=== PATIENT | female | born 1970 | race Caucasian/White ===

== ENCOUNTER 2019-11-26 14:50 | Outpatient (CLI) | payer MEDICARE, MEDICAID, SELFPAY ==
--- NOTE | 2019-11-26 15:11 | XR_ITS ---
WS: [id number] Left shoulder, 2 views, 11/26/2019 Clinical Data: LEFT SHOULDER PAIN Comparison: None. Findings: No fractures or dislocations are seen. The AC joint is normal. The adjacent left clavicle, left scapu la and ribs are normal. The soft tissues are unremarkable. XR/XR shoulder LT min 2V* [id number] Impression: Negative left shoulder.
--- NOTE | 2019-11-26 15:11 | XR_ITS ---
WS: [id number] Bone mineral density performed on a [place], 11/26/2019 Clinical data: OSTEOPOROSIS Findings: The first 4 lumbar vertebral bodies demonstrated the bone mineral density of 1.237 g/cm2 for a young adult T score of 0.5. Measurement of the left hip reveals a bone mineral density of 0.933 g/cm2 with a young adult T score of -0.6. Measurement of the right hip reveals the bone mineral density of 0.935 g/cm2 for young adult T score of -0.6. XR/XR DEXA axial skeleton* [id number] Impression: Normal bone mineral density of the lumbar spine and both hips.
== END 2019-11-26 14:51 | disposition home or self-care (01) ==
LOC: RADWPI 14:57
PROVIDERS: PCP Nurse Practitioner Family; Visit Provider Nurse Practitioner Family
DX: M81.0 Age-related osteoporosis without current pathological fracture (principal); M25.512 Pain in left shoulder
CPT/HCPCS: 73030; 77080

== ENCOUNTER 2019-12-20 11:05 | Outpatient (CLI) | payer MEDICARE, MEDICAID, SELFPAY ==
--- NOTE | 2019-12-20 11:11 | MM_ITS ---
WS: [id number] BILATERAL SCREENING DIGITAL MAMMOGRAM WITH CAD HISTORY: SCREENING COMPARISON: 11/11/2018 Bilateral CC and MLO views submitted. Computer aided detection analyzed. Breast composition: The breasts are heterogeneously dense, which may obscure small masses. No suspici ous masses, microcalcifications or architectural distortion. MM/[place] [id number] IMPRESSION: BI-RADS: 1-Negative FOLLOW UP: 1 Year Follow-up
--- NOTE | 2019-12-20 11:46 | USCV_ITS ---
Jaye Monge Age: 49 Gender: F : 1970 Exam Date: 12/20/2019 12:38 Ordering Phys: Eryn Reed APRN Technologist: Gurdeep Villar Exam Location: [facility] [place] Indication: CHEST PAIN BP: 120 / 80 HR: 61 Rhythm: Sinus Technical Quality: Good MEASUREMENTS (Male / Female) Normal Values 2D ECHO LV Diastolic Diameter PLAX 4.1 cm 4.2 - 5.9 / 3.9 - 5.3 cm LV Systolic Diameter PLAX 2.4 cm IVS Diastolic Thickness 1.0 cm 0.6 - 1.0 / 0.6 - 0.9 cm IVS Systolic Thickness 1.0 cm LVPW Diastolic Thickness 0.7 cm 0.6 - 1.0 / 0.6 - 0.9 cm LVPW Systolic Thickness 0.9 cm LVOT Diameter 2.0 cm LV Ejection Fraction 2D Teich 73.8 % LV Ejection Fraction MOD 2C 62.3 % LV Ejection Fraction 2C AL 64.1 % LA Diameter 3.2 cm LA Width 3.1 cm LA Height 3.3 cm RA Width 2.8 cm RA Height 3.7 cm Aorta at Sinotubular Diameter 0.9 cm M-MODE LV Diastolic Diameter MM 4.5 cm 4.2 - 5.9 / 3.9 - 5.3 cm LV Systolic Diameter MM 3.3 cm LV Ejection Fraction MM Teich 50.5 % IVS Diastolic Thickness MM 0.9 cm 0.6 - 1.0 / 0.6 - 0.9 cm IVS Systolic Thickness MM 1.2 cm LVPW Diastolic Thickness MM 0.9 cm 0.6 - 1.0 / 0.6 - 0.9 cm LVPW Systolic Thickness MM 1.7 cm RV Diastolic Diameter MM 0.9 cm Aortic Annulus Diameter 3.0 cm LA Ao Ratio MM 1.0 MV E Point Septal Separation 0.7 cm DOPPLER AV Peak Velocity 125.0 cm/s LVOT Peak Velocity 95.0 cm/s AV Area Cont Eq vti 3.0 cm squared AV Area Cont Eq pk 2.4 cm squared MV Area PHT 5.0 cm squared Mitral E to A Ratio 1.2 MV E' Velocity 43.5 cm/s Mitral E to MV E' Ratio 7.9 Mitral E to LV E' Lateral Ratio 7.8 Mitral E to LV E' Septal Ratio 8.1 TR Peak Velocity 86.3 cm/s TR Peak Gradient 3.0 mmHg TV Peak E Velocity 97.0 cm/s Right Atrial Pressure 3.0 mmHg Pulmonary Artery Systolic Pressu 6.0 mmHg PV Peak Velocity 92.0 cm/s FINDINGS Left Ventricle Normal left ventricular cavity size. Normal left ventricular systolic function. No regional wall motion abnormalities. Left ventricular ejection fraction is estimated at 65 %. Normal diastolic function. Right Ventricle The right ventricle is normal in size and function. Right Atrium The right atrium is normal in size. Left Atrium The left atrium is normal in size. Mitral Valve Mildly thickened mitral valve. No mitral valve stenosis. Mild mitral valve regurgitation. Aortic Valve Mild aortic valve calcification. No aortic valve stenosis. Trace aortic valve regurgitation. Tricuspid Valve Structurally normal tricuspid valve without significant stenosis or regurgitation. Pulmonary artery systolic pressure is normal. Pulmonic Valve Mild pulmonary valve regurgitation. Pericardium Normal pericardium without effusion. Aorta Normal ascending aorta dimension. CONCLUSIONS 1-Normal left ventricular cavity size. Normal left ventricular systolic function. No regional wall motion abnormalities. Left ventricular ejection fraction is estimated at 65 %. Normal diastolic function. 2-Mild pulmonary valve regurgitation. 3-Mild aortic valve calcification. No aortic valve stenosis. Trace aortic valve regurgitation. 4-Right atrial pressure is around 5 mm of mercury. 5-There are no prior echocardiogram studies to compare. Dayanara White MD (Electronically Signed) Final Date: 20 December 2019 18:48 S
== END 2019-12-20 11:06 | disposition home or self-care (01) ==
PROVIDERS: PCP Nurse Practitioner Family; Visit Provider Nurse Practitioner Family
DX: Z12.31 Encounter for screening mammogram for malignant neoplasm of breast (principal); I10 Essential (primary) hypertension; R07.9 Chest pain, unspecified; I35.1 Nonrheumatic aortic (valve) insufficiency
CPT/HCPCS: 77067; 93306

== ENCOUNTER → 2020-03-03 13:55 | Outpatient (BNVA) | payer MEDICARE, MEDICAID, SELFPAY | PROVIDERS: PCP Nurse Practitioner Family; Visit Provider Surgery | DX: Z01.812 Encounter for preprocedural laboratory examination (principal); Z20.828 Contact with and (suspected) exposure to other viral communicable diseases | CPT/HCPCS: 87635 ==

== ENCOUNTER 2020-03-08 08:02 | Day surgery (SDC) | payer MEDICARE, MEDICAID, SELFPAY ==
[2020-03-06 10:58] VITALS: BMI 19.9
[2020-03-08 08:16] VITALS: BP 166/94; PULSE 78; RESP 18; TEMP 36.1; O2SAT 100
[2020-03-08 08:27] LABS: OR HCG Qualitative Urine Negative (Negative)
[2020-03-08] MEDS: sodium chloride 0.9% 1,000 ML 30 ML IV (08:29)
--- NOTE | 2020-03-08 08:37 | ANES.PREANE2 ---
Pre-Anesthetic Assessment Pre-Anesthetic Assessment: Height/Weight: Height 1.57 m Weight 49.442 kg Temp Pulse Resp BP Pulse Ox 97 F L 78 18 166/94 100 03/08/20 08:16 03/08/20 08:16 03/08/20 08:16 03/08/20 08:16 03/08/20 08:16 Proposed Procedure: Operation Date: 03/08/20 08:45 Proposed Procedures p Colonoscopy 87348 z12.11(Not Applicable) - Quinten Temple MD Was Beta Polo taken within 24 hours: N/A Last intake: Intake Last Liquid Date 03/07/20 Last Liquid Time 23:30 Last Solid Date 03/06/20 Last Solid Time 23:00 Social: Social History: Tobacco and No alcohol Exam: Pre-Anes Outpt Exam: alert, oriented x 3 and regular rate & rhythm Additional Exam Findings (including area of procedure): Rhonchi Airway: Submandibular: WNL Cervical ROM: WNL MP: 2 Dentition: False Pulmonary: Pulmonary: COPD CV/HEM: CV/HEM: HTN Anesthetic Plan: ASA status: 3 Anesthesia: MAC Risk of > 500 ml blood loss (7ml/kg in children): No Meds/Allergies Current Medications: Current Medications Generic Name Dose Route Start Last Admin Trade Name Freq PRN Reason Stop Dose Admin Sodium Chloride 1,000 mls @ 30 ml s/hr 03/08/20 08:15 03/08/20 08:29 Sodium Chloride 0.9% IV 03/09/20 08:14 30 mls/hr .Q24H DAVEY Administration Data Anesthesia Other Labs: Laboratory Results - last 48 hr 03/08/20 08:25 Urine HCG, Qual Negative Cardiac Studies: No Data to Display
--- NOTE | 2020-03-08 08:54 | W.PM.OPSFHP ---
Same Day Surgery H&P Indication for Procedure/HPI DATE OF PROCEDURE: March 08, 2020 CHIEF COMPLAINT/INDICATIONFOR SURGICAL PROCEDURE: Screening colonoscopy PREOP DIAGNOSIS: Occult blood in stool PLANNED PROCEDRUE: Operation Date: 03/08/20 08:45 Proposed Procedures p Colonoscopy 00420 z12.11(Not Applicable) - Quinten Temple MD This is a pleasant 49 years old female patient presented to my practice with referral with history of occult blood in stool and her father in his 70s had colorectal cancer. Patient reports that she never had a colonoscopy before and denies history of nonintentional weight loss. ROS All systems have been reviewed and are negative except as per the above or per problem list Medications/Allergies* Home Medications Medication Instructions Recorded Confirmed Type albuterol sulfate 90 mcg/actuation 2 puff INHALATION Q6H PRN 02/07/20 03/08/20 History aerosol inhaler hydrochlorothiazide 12.5 mg tablet 12.5 mg PO DAILY 02/07/20 03/06/20 History lisinopril 20 mg tablet 20 mg PO DAILY 02/07/20 03/08/20 History Allergies/Adverse Reactions Allergy/AdvReac Type Severity Reaction Status Date / Time tramadol Allergy Nightmares Verified 03/08/20 08:58 Liquid Acetaminophen Allergy Rash Uncoded 03/08/20 08:58 Current Medications: Generic Name Dose Route Start Last Admin Trade Name Freq PRN Reason Stop Dose Admin Sodium Chloride 1,000 mls @ 30 mls/hr 03/08/20 08:15 03/08/20 08:29 Sodium Chloride 0.9% IV 03/09/20 08:14 30 mls/hr .Q24H DAVEY Administration Pertinent Exam Findings alert, oriented x 3, clear to auscultation bilaterally, regular rate & rhythm and procedure specific exam findings (Abdominal examination nontender nondistended soft lower midline scar.) Recommendations Surgery/Procedure today (Colonoscopy possible biopsy possible polypectomy.) Coding Level of Care Code Acute Security Delivery Specialist for Monica Wan
[2020-03-08 09:27] VITALS: BP 108/72; PULSE 81; RESP 16; TEMP 36.1; O2SAT 99
[2020-03-08 09:43] VITALS: BP 166/70; PULSE 73; RESP 18; O2SAT 99
== END 2020-03-08 10:00 | disposition home or self-care (01) ==
PROVIDERS: Anesthesiology; PCP Nurse Practitioner Family; Visit Provider Surgery
PROC: 0DJD8ZZ Inspection of Lower Intestinal Tract, Via Natural or Artificial Opening Endoscopic (ICD-10-PCS; CPT 45378; principal; 2020-03-08 08:45)
DX: R19.5 Other fecal abnormalities (principal); Z80.0 Family history of malignant neoplasm of digestive organs; D12.0 Benign neoplasm of cecum; D12.8 Benign neoplasm of rectum; J44.9 Chronic obstructive pulmonary disease, unspecified; I10 Essential (primary) hypertension
CPT/HCPCS: 12345; 45380; 45385; 81025; 84703; 88305; J2704; J7030

== ENCOUNTER → 2020-05-16 14:51 | Outpatient (BNVA) | payer MEDICARE, MEDICAID, SELFPAY | PROVIDERS: PCP Nurse Practitioner Family; Referring Provider Nurse Practitioner Family; Visit Provider Orthopaedic Surgery | DX: M25.512 Pain in left shoulder (principal) | CPT/HCPCS: 72040; 73030 ==

== ENCOUNTER 2020-06-19 07:47 | Outpatient (CLI) | payer MEDICARE, MEDICAID, SELFPAY ==
--- NOTE | 2020-06-19 08:06 | MR_ITS ---
WS: [id number] MRI CERVICAL SPINE NONCONTRAST HISTORY: PAIN IN UNSPECIFIED SHOULDER COMPARISON: Cervical spine radiograph 05/16/2020. Technique: Multiplanar, multisequence noncontrast imaging of the cervical spine. Normal cervical alignment with no compression fracture or significant disc space narrowing. Signal within the cervical cord is normal. Visualized posterior fossa is unremarkable. Craniocervical junction, C1 and C2 relationship, odontoid process and soft tissues are normal. C2-C3: Normal. C3-C4: Small foraminal osteophytes without stenosis. C4-C5: Moderate-sized disc osteophyte extending into the LEFT foramen causing posterior displacement of the exiting nerve roots. There is mild deformity of the LEFT lateral thecal sac due to the disc os teophyte complex. Mild LEFT foraminal stenosis. C5-C6: Diffuse mild osteophytic ridging with minimal encroachment upon the ventral thecal sac. C6-C7: Normal. C7-T1: Normal. Seen best on the sagittal STIR sequence is marrow edema in the paraspinal soft tissues at the C3-4 an d a small amount of increased fluid in the facet joint of C4-5 on the LEFT. MR/MR cervical spin wo con* [id number] IMPRESSION: 1. No acute fracture. 2. Mild LEFT foraminal stenosis at C4-5 due to disc osteophyte complex. 3. Minimal encroachment upon the ventral thecal sac at C5-C6 due to osteophyti c ridging. 4. Soft tissue edema in the muscles surrounding C3-4 on the LEFT and mild syno vitis at C4-5 on the LEFT. These findings may be related to recent injury or mi ld inflammatory arthropathy.
== END 2020-06-19 07:48 | disposition home or self-care (01) ==
PROVIDERS: PCP Nurse Practitioner Family; Visit Provider Orthopaedic Surgery
DX: M25.519 Pain in unspecified shoulder (principal); M48.02 Spinal stenosis, cervical region; R60.0 Localized edema; M65.88 Other synovitis and tenosynovitis, other site
CPT/HCPCS: 72141

== ENCOUNTER → 2020-06-27 08:19 | Outpatient (BNVA) | payer MEDICARE, MEDICAID, SELFPAY | PROVIDERS: PCP Nurse Practitioner Family; Referring Provider Orthopaedic Surgery; Visit Provider Orthopaedic Surgery | DX: M54.12 Radiculopathy, cervical region (principal); M47.892 Other spondylosis, cervical region | CPT/HCPCS: 72040 ==

== ENCOUNTER 2020-10-13 10:41 | Emergency (ER) | payer MEDICARE, MEDICAID, SELFPAY ==
[2020-10-13 11:04] VITALS: BP 76/55; PULSE 62; RESP 23; TEMP 35.8; O2SAT 89
--- NOTE | 2020-10-13 11:07 | ED_ITS ---
HPI - Allergic Reaction General: Chief complaint: Animal Bite Stated complaint: stung by wasp Time Seen by Provider: 10/13/20 11:06 Source: patient Mode of arrival: ambulatory Limitations: no limitations History of Present Illness: HPI narrative: wasp sting 1 hour ago, left shoul elver, left scapula-hives, itching MD complaint: allergic reaction and hives Onset (ago): hour(s) (1) Exposure: insect bite Review of Systems General: Reports: 10 or more systems reviewed and unremarkable except in HPI and below ENMT: Denies: throat pain or odynophagia Resp: Denies: dyspnea Skin/Breast: Reports: rash, pruritus and erythema PFSH ED PFSH: Medical History Colon polyps Social History Smoking and tobacco status: current every day smoker Second hand smoke exposure: No Smoking risk assessment/counseling performed?: No Alcohol intake: former Physical Exam Const: COMMON NORMALS: no acute distress, patient oriented x3, no limitations and alert GENERAL APPEARANCE: cooperative and comfortable ORIENTATION/C ONSCIOUSNESS: Yes awake, Yes oriented to person, Yes oriented to place and Yes oriented to time HENMT: COMMON NORMALS: normocephalic, atraumatic, external ears normal, EAC's normal, TM's normal bilaterally and Normal external nose present HEAD & SCALP: normal to inspection, normocephalic and atraumatic FACE & SINUS: normal facial exam, sinuses nontender and face symmetric NOSE: Normal external nose present, Normal nares present and No nasal discharge present EXTERNAL EAR: Yes external ears normal EXTERNAL AUDITORY CANAL: EAC's normal TYMPANIC MEMBRANE: TM's normal bilaterally MOUTH: Normal oral and palatal mucosa present, lip normal and tongue normal THROAT: posterior oropharynx normal, tonsils normal and uvula midline Eye: COMMON NORMALS: Equal, round and reactive pupils present, EOMs intact bilaterally and conjunctivae normal GENERAL EYE: appearance normal, both eyes and all related structures and normal light reflex EYELID: eyelids normal CONJUNCTIVA: Yes conjunctivae normal PUPIL: Yes Equal, round and reactive pupils present EOM: Yes EOM abnormal DIRECT OPHTHALMOSCOPY: Yes normal light reflex Neck/C-Spine: COMMON NORMALS: full ROM, no lymphadenopathy, supple, no meningeal signs, no JVD and Thyroid normal GENERAL: Yes normal visual inspection THYROID: Thyroid normal CERVICAL SPINE: Yes cervical ROM normal and Yes normal cervical lordosis Lymph: LYMPHATIC: no lymphadenopathy noted Chest: COMMONS NORMALS: normal inspection of the chest and normal palpation of entire chest wall Resp: COMMON NORMALS: normal respiratory effort, No retractions and clear to auscultation bilaterally AUSCULTATION: clear to auscultation bilaterally Cardio: COMMON NORMALS: no JVD, regular rate, regular rhythm, S1 normal heart sound present, S2 normal heart sound present, No gallops present (Cardio), No clicks present (Cardio), No murmurs present (Cardio), No rub (Cardio) and Peripheral pulses 2+ throughout RATE: regular rate RHYTHM: regular rhythm HEART SOUNDS: S1 normal heart sound present and S2 normal heart sound present PERIPHERAL PULSES: Peripheral pulses 2+ throughout GI: COMMON NORMALS: Normal to inspection, nondistended, normoactive bowel sounds present, Soft to palpation, non-tender and no masses PALPATION: Yes Soft to palpation : COMMON NORMALS: Yes no CVA tenderness and Yes normal external appearance BLADDER/KIDNEY EXAM: Yes no CVA tenderness Back/Pelvis: COMMON NORMALS: no CVA tenderness, thoracic and lumbar spine normal to inspection, no thoracic nor lumbar tenderness and thoraco-lumbar ROM normal Extremity: COMMON NORMALS: normal to inspection, full ROM, capillary refill normal, no joint enlargement, no clubbing, cyanosis or edema, no calf tenderness and no pedal edema GENERAL: Yes normal exam except as noted Neuro: COMMON NORMALS: patient oriented x3, moves all extremities, no focal motor deficits, no sensory deficits noted and gait normal SENSORIUM/ORIENTATION: Yes alert, Yes oriented to person, Yes oriented to place and Yes oriented to time MENINGEAL SIGNS: Yes no meningeal signs Psych: COMMON NORMALS: mental status grossly normal, Normal thought process present, cooperative, normal affect, speech normal and activity/motor behavior normal SPEECH: Yes normal speech THOUGHT PROCESS: Normal thought process present Skin: COMMON NORMALS: no rashes or lesions noted, no wounds and turgor normal SKIN IMAGES (FEMALE): 1. wasp sting 1; erythema and mild swelling 2. wasp sting 2; erythema and mild swelling GENERAL SKIN EXAM: no rashes or lesions noted and turgor normal Course ED course: Pt was stung by wasp two times approximately 1 hour ago. She developed hives and itching. No SOB or difficulty swallowing. IV benadryl, steroids, and pepcid ordered. Will monitor for at least one hour for further rx. Reevaluation(s): Reevaluation #1: Pt vitals are stable and no signs of worsening reaction. We will proceed with DC. Return if needed. Time: 12:39 Vital Signs: Vital signs: Vital Signs Temperature 96.4 F L 10/13/20 11:04 Pulse Rate 64 10/13/20 12:07 Respiratory Rate 16 10/13/20 12:07 Blood Pressure 116/71 10/13/20 12:07 Pulse Oximetry 100 10/13/20 12:07 Discharge Plan Discharge Patient Disposition: Home Clinical Impression: Sting, wasp Condition: Stable Prescriptions: No Action lisinopril 20 mg tablet 20 mg PO DAILY RF: 0 hydrochlorothiazide 12.5 mg tablet 12.5 mg PO DAILY RF: 0 albuterol sulfate [ProAir HFA] 90 mcg/actuation HFA aerosol inhaler 2 puff inhalation Q6H PRN (Reason: Shortness Of Breath) RF: 0 cyclobenzaprine 5 mg tablet 5 mg PO TID PRNRF: 0 Discharge Orders: Discharge ED (Routine); Ordered 10/13/20 Ordered By: Kathleen Garrett Referrals: Eryn Reed APRN [Primary Care Provider] - Discharge Diet: Usual diet Discharge Activity: Increase activity as tolerated Patient Instructions: Opioid Safety Activity Restrictions/Additional Instructions: Please return if any concerns. May repeat benadryl and pepcid for itching or hives as directed. Coding Level of Care Code ED Rear Load Truck Driver for Chg Fwd Exam Comprehensive
[2020-10-13] MEDS: diphenhydrAMINE 50 mg/mL SDV 1mL 25 MG IVP (11:12)
[2020-10-13] MEDS: dexamethasone 10 mg/mL INJ 6 MG IVP (11:19)
[2020-10-13] MEDS: famotidine 20 mg/2 mL INJ IVP (11:23)
[2020-10-13 11:24] VITALS: BP 95/61; PULSE 56; RESP 14; O2SAT 100
[2020-10-13 12:07] VITALS: BP 116/71; PULSE 64; RESP 16; O2SAT 100
[2020-10-13 12:57] VITALS: BP 114/71; PULSE 71; O2SAT 100
== END 2020-10-13 12:57 | disposition home or self-care (01) ==
PROVIDERS: Emergency Provider Nurse Practitioner Family; PCP Nurse Practitioner Family
DX: T63.461A Toxic effect of venom of wasps, accidental (unintentional), initial encounter (principal); F17.210 Nicotine dependence, cigarettes, uncomplicated
CPT/HCPCS: 96374; 96375; 99283; J1100; J1200; J3490

== ENCOUNTER → 2021-07-12 11:13 | Outpatient (BNVA) | payer MEDICARE, MEDICAID, SELFPAY | PROVIDERS: PCP Nurse Practitioner Family; Visit Provider Family Medicine | DX: I10 Essential (primary) hypertension (principal); F32.9 Major depressive disorder, single episode, unspecified; J43.1 Panlobular emphysema | CPT/HCPCS: 80053; 80061; 82043; 85025 ==

== ENCOUNTER 2022-03-13 08:50 | Outpatient (CLI) | payer MEDICARE, MEDICAID, SELFPAY ==
--- NOTE | 2022-03-13 09:00 | CT_ITS ---
WS: [id number] CT NECK TECHNIQUE: Contrast-enhanced CT of the neck with coronal and sagittal reformatted images. CLINICAL INFORMATION: left cervical adenopathy COMPARISON: None. DLP: 315.[address] scans at [facility] use at least one of these dose optimization techniques: automated e xposure control; mA and/or kV adjustment per patient size (includes targeted exams where dose is matc hed to clinical indication); or iterative reconstruction. FINDINGS: Several prominent bilateral upper cervical lymph nodes larger on the LEFT measuring 9.6 mm at the ang le of the mandible in short axis dimension. A few additional prominent RIGHT cervical lymph nodes at the angle of the mandible on the RIGHT and posterior triangle RIGHT greater than LEFT. These are nons pecific but most likely reactive. Recommend interval follow-up to resolution. Parotid glands are normal. Normal submandibular glands. Tongue base appears normal. No evidence of lopez praglottic or glottic mass. Normal subglottic airway. A few tiny nodules in the thyroid gland. Calcif ied granuloma RIGHT upper lobe. Prominent adenoid tissue in the posterior nasopharynx. This is nonspe cific but most likely reactive. This can be further evaluated with direct visualization. No other juan picious findings. CT/CT neck w con* [id number] IMPRESSION: 1. Prominent bilateral jugulodigastric lymph nodes LEFT greater than RIGHT dennise suring 9 mm in short axis dimension. A few prominent RIGHT greater than LEFT po sterior triangle lymph nodes measuring up to 6 mm in short axis dimension. Thes e are nonspecific but most likely reactive. Recommend follow-up to resolution. 2. Prominent adenoid tissue with cystic change in the posterior nasopharynx mo st likely reactive. Recommend direct visualization. 3. Otherwise normal posterior nasopharynx and normal parapharyngeal fat. 4. No evidence of supraglottic or glottic mass. 5. No other suspicious findings.
[2022-03-13] MEDS: iohexol 350 mg/mL 500 mL Btl (per mL) IV (10:42)
== END 2022-03-13 08:51 | disposition home or self-care (01) ==
LOC: RAD 08:55
PROVIDERS: PCP Family Medicine; Visit Provider Family Medicine
DX: R59.0 Localized enlarged lymph nodes (principal)
CPT/HCPCS: 70491; Q9967

== ENCOUNTER → 2022-04-29 08:02 | Outpatient (BNVA) | payer MEDICARE, MEDICAID, SELFPAY | PROVIDERS: PCP Family Medicine; Visit Provider Otolaryngology | DX: J39.2 Other diseases of pharynx (principal); R59.1 Generalized enlarged lymph nodes | CPT/HCPCS: 31575; 99204 ==

== ENCOUNTER → 2022-07-25 11:09 | Outpatient (BNVA) | payer MEDICARE, MEDICAID, SELFPAY | PROVIDERS: PCP Family Medicine; Visit Provider Family Medicine | DX: I10 Essential (primary) hypertension (principal); R63.4 Abnormal weight loss | CPT/HCPCS: 80053; 80061; 82043; 84443; 85025; 86803; 87806 ==

== ENCOUNTER 2022-08-06 09:02 | Outpatient (CLI) | payer MEDICARE, MEDICAID, SELFPAY ==
--- NOTE | 2022-08-06 09:05 | MM_ITS ---
WS: [id number] BILATERAL 3D TOMOSYNTHESIS DIGITAL SCREENING MAMMOGRAPHY WITH CAD CLINICAL INFORMATION: screening mammogram HISTORY: Screening mammogram. Chronic pain and soreness COMPARISON: 2020 TECHNIQUE: Bilateral CC and MLO views. FINDINGS: The breasts are composed of heterogeneous fibroglandular density tissue, which can limit the detectio n of small underlying mass lesions. No suspicious mass, asymmetry, calcifications, or architectural d istortion. No evidence of malignancy. MM/[place] [id number] IMPRESSION: BI-RADS: 1-Negative FOLLOW UP: 1 Year Follow-up Recommend return to annual screening mammography.
--- NOTE | 2022-08-06 09:45 | CT_ITS ---
WS: [id number] LDCT LUNG CANCER SCREENING HISTORY: screening TECHNIQUE: Axial imaging performed from the apices to 1 cm below the costophrenic angles. Coronal and sagittal reformats are submitted with axial MIP series. All CT scans at [facility] use at least one of these dose optimization techniques: automated exposure control; mA and/or kV adjustment per patient size (includes targeted exams where dose is matched to clinical indication); or iterativ e reconstruction. DLP: 32.92 mGy.cm DIvol: Mean CTDIvol: 0.50 (mGy) COMPARISON: None available. Diagnostic quality: Satisfactory Lungs: Pulmonary hyperexpansion. Centrilobular emphysema. 3 mm subpleural nodule LEFT upper lobe. 4 m m noncalcified nodule LEFT lung base. No additional nodule or mass. No pneumonia. No endobronchial le sions. Heart: Normal size heart with no pericardial effusion.. Other findings: Normal aorta. Normal size pulmonary artery. No adenopathy. CT/CT lung screening [id number] IMPRESSION: LUNG-RADS: 3-Probably Benign FOLLOW UP: 6 Month LDCT OTHER FINDINGS (S MODIFIER): None.
== END 2022-08-06 09:03 | disposition home or self-care (01) ==
PROVIDERS: PCP Family Medicine; Visit Provider Family Medicine
DX: Z12.2 Encounter for screening for malignant neoplasm of respiratory organs (principal); F17.200 Nicotine dependence, unspecified, uncomplicated; Z12.31 Encounter for screening mammogram for malignant neoplasm of breast
CPT/HCPCS: 71271; 77063; 77067

== ENCOUNTER 2023-04-10 12:42 | Outpatient (CLI) | payer MEDICARE, MEDICAID, SELFPAY ==
--- NOTE | 2023-04-10 13:00 | CT_ITS ---
WS: [id number] CT chest w con* [id number] HISTORY: abnormal CT lung screen, pulm nodules TECHNIQUE: Axial imaging performed through the thorax. Coronal and sagittal reformats are submitted. All CT scans at [facility] use at least one of these dose optimization techniques: automated exposure control; mA and/or kV adjustment per patient size (includes targeted exams where dose is mat ched to clinical indication); or iterative reconstruction. CONTRAST: Omnipaque 350; 100 mL IV. DLP: 189.51 mGy.cm COMPARISON: 08/06/2022 Lungs and central airway: Pulmonary hyperexpansion. Subpleural nodule in the LEFT upper lobe is very minimal. No increase in size of this nodule. The 4 mm nodule at the LEFT lung base is reidentified an d may be partially calcified. There has been no increase in size. No additional pulmonary mass or nod ule. No pneumonia. The benign calcified granuloma RIGHT apex. Pleura: Normal. No pleural effusion. Heart and pericardium: Normal size heart with no pericardial effusion. Mediastinum and alireza: No mediastinum or hilar adenopathy. Vessels: Mild ectasia and atherosclerosis aorta. Maximum diameter of the ascending aorta is 3.3 cm. N ormal sized pulmonary arteries. Chest wall and lower neck: No soft tissue masses. Upper abdomen: Moderate atrophy and cortical thinning of the LEFT kidney. There is still renal enhanc ement. Normal appearing RIGHT kidney is visualized. No adrenal mass. Osseous structures: No destructive process. IMPRESSION: 1. No progression of the nodules noted in the LEFT upper and LEFT lower lobe since 08/06/2022. The LE FT upper lobe subpleural nodule is barely discernible. These appear to be benign nodules. Recommend r eturn to annual low-dose lung screening. 2. Mild emphysema. 3. Moderate atrophy and cortical thinning of the entire LEFT kidney. There is still enhancement of t he kidney suggesting it is continuing to function.
[2023-04-10] MEDS: iohexol 350 mg/mL 500 mL Btl (per mL) IV (13:04)
== END 2023-04-10 12:43 | disposition home or self-care (01) ==
LOC: RAD 12:45
PROVIDERS: PCP Family Medicine; Visit Provider Family Medicine
DX: R91.8 Other nonspecific abnormal finding of lung field (principal); J43.9 Emphysema, unspecified; N26.1 Atrophy of kidney (terminal)
CPT/HCPCS: 71260; Q9967

== ENCOUNTER → 2024-08-13 08:47 | Outpatient (BNVA) | payer MEDICARE, MEDICAID, SELFPAY | PROVIDERS: PCP Family Medicine; Visit Provider Family Medicine | DX: I10 Essential (primary) hypertension (principal); M25.572 Pain in left ankle and joints of left foot | CPT/HCPCS: 80053; 80061; 84443; 84550; 85025 ==

== ENCOUNTER 2024-08-25 09:56 | Outpatient (CLI) | payer MEDICARE, MEDICAID, SELFPAY ==
--- NOTE | 2024-08-25 10:00 | CT_ITS ---
WS: [id number] LDCT LUNG CANCER SCREENING HISTORY: screen TECHNIQUE: Axial imaging performed from the apices to 1 cm below the costophrenic angles. Coronal and sagittal reformats are submitted with axial MIP series. All CT scans at [facility] use at least one of these dose optimization techniques: automated exposure control; mA and/or kV adjustment per patient size (includes targeted exams where dose is matched to clinical indication); or iterative reconstruction. DLP: 39.50 mGy.cm DIvol: Mean CTDIvol: 0.70 (mGy) COMPARISON: 04/10/2023, 08/06/2022 Diagnostic quality: Satisfactory Lungs: Hyperinflated lungs with emphysema. Calcified granuloma RIGHT upper lobe is stable. Slightly spiculated 4 mm nodule at the LEFT lung base near the diaphragm is stable. 2 mm subpleural nodule LEFT upper lobe unchanged. No new mass or nodule. No enlarging mass. Heart: Normal size heart with no pericardial effusion.. Other findings: Mild ectasia and atherosclerosis aorta. Normal size pulmonary artery. No pathologically enlarged lymph nodes. Small hiatal hernia. Mild atrophy upper pole LEFT kidney. CT/CT lung screening [id number] IMPRESSION: LUNG-RADS: 2-Benign Appearance or Behavior FOLLOW UP: 12 Month: Continue annual screening with LDCT OTHER FINDINGS (S MODIFIER): None.
== END 2024-08-25 09:57 | disposition home or self-care (01) ==
LOC: RAD 09:58
PROVIDERS: PCP Family Medicine; Visit Provider Family Medicine
DX: Z12.2 Encounter for screening for malignant neoplasm of respiratory organs (principal); F17.219 Nicotine dependence, cigarettes, with unspecified nicotine-induced disorders; J98.4 Other disorders of lung; R91.8 Other nonspecific abnormal finding of lung field
CPT/HCPCS: 71271

== ENCOUNTER 2024-12-28 10:46 | Outpatient (CLI) | payer MEDICARE, MEDICAID, SELFPAY ==
--- NOTE | 2024-12-28 10:40 | MM_ITS ---
WS: [id number] BILATERAL 3D TOMOSYNTHESIS DIGITAL SCREENING MAMMOGRAPHY WITH CAD CLINICAL INFORMATION: screening HISTORY: Screening mammogram. No current complaints. COMPARISON: 2022 TECHNIQUE: Bilateral CC and MLO views. FINDINGS: The breasts are composed of heterogeneous fibroglandular density tissue, which can limit the detection of small underlying mass lesions. No suspicious mass, asymmetry, calcifications, or architectural distortion. No evidence of malignancy. Incidental calcification LEFT breast MM/MM scr tomosynthesis [id number] IMPRESSION: DENSITY: The breasts are heterogeneously dense, which may obscure small masses. BI-RADS: 2 - Benign FOLLOW UP: 1 Year Follow-up Recommend return to annual screening mammography.
== END 2024-12-28 10:47 | disposition home or self-care (01) ==
PROVIDERS: PCP Family Medicine; Visit Provider Family Medicine
DX: Z12.31 Encounter for screening mammogram for malignant neoplasm of breast (principal); R92.333 Mammographic heterogeneous density, bilateral breasts; R92.323 Mammographic fibroglandular density, bilateral breasts; R92.1 Mammographic calcification found on diagnostic imaging of breast
CPT/HCPCS: 77063; 77067